=== PATIENT | male | born 1970 | race Caucasian/White ===

== ENCOUNTER → 2022-11-21 | Outpatient (CLI) | payer OTHER | LOC: M RAD 16:27 | PROVIDERS: ATTEND Internal Medicine Critical Care Medicine | DX: R91.8 Other nonspecific abnormal finding of lung field (principal); Z95.5 Presence of coronary angioplasty implant and graft; N20.0 Calculus of kidney; K80.20 Calculus of gallbladder without cholecystitis without obstruction ==

== ENCOUNTER → 2023-03-05 | Outpatient (CLI) | payer OTHER | LOC: M PLARAD 15:00 | PROVIDERS: ATTEND Plastic Surgery Surgery of the Hand | DX: L72.3 Sebaceous cyst (principal) ==

== ENCOUNTER → 2024-01-29 | Outpatient (CLI) | payer OTHER | LOC: M RAD 08:08 | PROVIDERS: ATTEND Internal Medicine Critical Care Medicine | DX: R91.8 Other nonspecific abnormal finding of lung field (principal) ==